=== PATIENT | male | born 1990 | race Caucasian/White ===

== ENCOUNTER 2016-09-28 16:26 | Emergency (ER) | payer MEDICAID ==
[~2016-09-28] VITALS: Ht 165.1 cm; Wt 62.0 kg
[2016-09-28 16:53] VITALS: BP 129/102
[2016-09-28] MEDS ORDERED: SODIUM CHLORIDE FLUSH 10ML SYR IVF ONE (17:00)
[2016-09-28] MEDS ORDERED: PLEASE ENTER HEIGHT AND WEIGHT MC SCH (17:00)
[2016-09-28] MEDS ORDERED: PHENYTOIN SODIUM 1,000 MG in SODIUM CHLORIDE 0.9% 80 ML IV ONE (17:00)
[2016-09-28] MEDS ORDERED: FILTER 0.22 MICRON FOR PHENYTOIN IV PRN (17:30)
== END 2016-09-28 17:11 | disposition left against medical advice (07) ==
LOC: ED 16:51
DX: R56.9 Unspecified convulsions (principal); G40.919 Epilepsy, unspecified, intractable, without status epilepticus; J45.909 Unspecified asthma, uncomplicated
CPT/HCPCS: 99283

== ENCOUNTER 2016-12-24 14:18 | Emergency (ER) | payer MEDICAID ==
[~2016-12-24] VITALS: Ht 165.1 cm; Wt 70.0 kg
[2016-12-24 14:25] VITALS: BP 107/71
[2016-12-24] MEDS ORDERED: PHEN100C PO (14:27)
[2016-12-24] MEDS ORDERED: LORazepam 2 MG/ML, 1ML IVPush ONE (14:30)
[2016-12-24] MEDS ORDERED: PHENYTOIN SODIUM 1,000 MG in SODIUM CHLORIDE 0.9% 100 ML IVPB ONE (14:30)
[2016-12-24] MEDS ORDERED: LORazepam 2 MG/ML, 1ML ONE (14:39)
[2016-12-24 14:49] LABS: HEMOGLOBIN 14.8 g/dL (13.7-18.0); WHITE BLOOD COUNT 9.1 x10^3/uL (3.4-10)
[2016-12-24 14:59] LABS: BLOOD UREA NITROGEN 9 mg/dL (7-18)
[2016-12-24] MEDS ORDERED: FILTER 0.22 MICRON IV ONE (15:00)
== END 2016-12-24 16:14 | disposition left against medical advice (07) ==
LOC: ED 14:23
DX: G40.909 Epilepsy, unspecified, not intractable, without status epilepticus (principal); J45.909 Unspecified asthma, uncomplicated; F17.200 Nicotine dependence, unspecified, uncomplicated
CPT/HCPCS: 36415; 80048; 80185; 82040; 85025; 93005; 96365; 96375; 99285; J1165; J2060

== ENCOUNTER 2017-03-24 12:28 | Emergency (ER) | payer MEDICAID ==
[~2017-03-24] VITALS: Ht 165.1 cm; Wt 61.6 kg
[~2017-03-24 12:28] MED LIST: PHEN100C PO
[2017-03-24 12:38] VITALS: BP 117/81
== END 2017-03-24 13:31 | disposition left against medical advice (07) ==
LOC: ED 13:24
DX: M25.512 Pain in left shoulder (principal); G40.909 Epilepsy, unspecified, not intractable, without status epilepticus; F17.210 Nicotine dependence, cigarettes, uncomplicated
CPT/HCPCS: 93005; 99283

== ENCOUNTER 2017-10-29 05:14 | Emergency (ER) | payer MEDICAID ==
[~2017-10-29] VITALS: Ht 165.1 cm; Wt 65.0 kg
[2017-10-29 05:16] VITALS: BP 115/77
== END 2017-10-29 05:54 | disposition left against medical advice (07) ==
LOC: ED 05:48
DX: G40.419 Other generalized epilepsy and epileptic syndromes, intractable, without status epilepticus (principal); F17.200 Nicotine dependence, unspecified, uncomplicated
CPT/HCPCS: 99283